=== PATIENT | male | born 1995 | race Caucasian/White ===

== ENCOUNTER 2018-09-16 13:00 | Emergency (ER) | payer OTHER ==
[~2018-09-16] VITALS: Ht 170.2 cm; Wt 70.0 kg
[2018-09-16] MEDS ORDERED: KEFL500C17 PO (16:24)
[2018-09-16 16:32] VITALS: BP 130/69
== END 2018-09-16 16:33 | disposition home or self-care (01) ==
LOC: M ED 13:00
DX: L03.012 Cellulitis of left finger (principal)